=== PATIENT | male | born 1990 | race Caucasian/White ===

== ENCOUNTER 2017-04-28 05:19 | Emergency (ER) | payer OTHER ==
[~2017-04-28] VITALS: Ht 182.9 cm; Wt 75.5 kg
[2017-04-28 08:34] VITALS: BP 123/86
== END 2017-04-28 08:35 | disposition home or self-care (01) ==
LOC: ED 05:19
DX: M54.31 Sciatica, right side (principal)
CPT/HCPCS: J1885; J2270